=== PATIENT | male | born 1975 | race Caucasian/White ===

== ENCOUNTER 2016-06-09 12:32 | Emergency (ER) | payer SELFPAY ==
[~2016-06-09] VITALS: Ht 162.6 cm; Wt 95.0 kg
[2016-06-09 13:00] VITALS: Ht 162.6 cm; Wt 95.0 kg
[2016-06-09] MEDS ORDERED: morphine 4 MG/ML VIAL IV STA (14:29)
[2016-06-09] MEDS ORDERED: ONDANSETRON 4 MG INJ IV STA (14:29)
[2016-06-09] MEDS ORDERED: SOD CHLORIDE 0.9% 1,000 ML IV STA (14:29)
[2016-06-09 15:06] LABS: ADD SCAN DIFF NO
[2016-06-09 15:12] LABS: BASOPHILS % 0.6 % (0.0-2.0); EOSINOPHILS # 0.3 10^3/ul (0.0-0.5); EOSINOPHILS % 4.7 % (0.0-7.0); HEMATOCRIT 46.7 % (42.0-52.0); HEMOGLOBIN 15.4 g/dl (14.0-18.0); LYMPHOCYTES # 2.5 10^3/ul (0.8-2.9); LYMPHOCYTES % 36.3 % (15.0-51.0); MEAN CORPUSCULAR HEMOGLOBIN 28.6 pg (29.0-33.0); MEAN CORPUSCULAR VOLUME 86.8 fl (82.0-101.0); MEAN PLATELET VOLUME 10.6 fl (7.4-10.4); MONOCYTE # 0.7 10^3/ul (0.3-0.9); MONOCYTES % 9.4 % (0.0-11.0); NEUTROPHIL # 3.4 10^3/ul (1.6-7.5); NEUTROPHILS % 48.9 % (39.0-77.0); PLATELET COUNT 231 10^3/UL (140-415); RED BLOOD COUNT 5.38 10^6/ul (4.70-6.10); RED CELL DISTRIBUTION WIDTH 12.9 % (11.5-14.5)
[2016-06-09 15:15] LABS: ADD UMIC NO; URINE BILIRUBIN (Dip) NEGATIVE (NEGATIVE); URINE BLOOD (Dip) NEGATIVE (NEGATIVE); URINE COLOR LT. YELLOW (YELLOW); URINE GLUCOSE (Dip) NEGATIVE (NEGATIVE); URINE KETONES (Dip) NEGATIVE (NEGATIVE); URINE LEUKOCYTE ESTERASE (Dip) NEGATIVE (NEGATIVE); URINE NITRITE (Dip) NEGATIVE (NEGATIVE); URINE TOTAL PROTEIN (Dip) NEGATIVE (NEGATIVE); URINE UROBILINOGEN (Dip) 0.2 E.U./dL (0.1-1.0)
[2016-06-09 15:29] LABS: ALBUMIN 4.2 g/dl (3.3-4.9); POTASSIUM 4.5 mmol/L (3.5-5.1)
[2016-06-09 15:31] LABS: CREATININE 0.79 mg/dl (0.61-1.24)
[2016-06-09 15:32] LABS: ALBUMIN/GLOBULIN RATIO 1.2; BILIRUBIN,INDIRECT 0.3 mg/dl (0-1.1); BILIRUBIN,TOTAL 0.3 mg/dl (0.2-1.3); CALCIUM 9.9 mg/dl (8.4-10.2); TOTAL PROTEIN 7.7 g/dl (6.1-8.1)
--- NOTE | 2016-06-09 15:34 | RADRPT ---
PROCEDURE: CT Abdomen and Pelvis without contrast. CLINICAL INDICATION: Abdominal pain TECHNIQUE: CT scan of the abdomen and pelvis without contrast was performed on a multi-slice CT [facility] without intravenous contrast. Coronal and sagittal reformatted images were obtained from the axial source images. Images were reviewed on a high-resolution PACS workstation. One or more of the following does reduction techniques were used: Automated exposure control; adjustment of the mA an d/or kV according to patient size; use of the aorta of reconstruction technique. The total exam CTD I equals 22.52 mGy and the total exam DLP equals 1304 mGy-cm. COMPARISON: None available. FINDINGS: The lung bases are clear. Heart size is normal, and there is no evidence of pericardial thickening or effusion. There is mild decreased attenuation of the hepatic parenchyma consistent with fatty infiltration. T he liver, spleen, and pancreas are otherwise normal given the limitations of a noncontrast CT examin [facility]. The gallbladder is normal. The adrenal glands are normal. The kidneys without renal calculus or hydronephrosis. The aorta is of normal caliber. There is no retroperitoneal lymph node enlargment. There is no evidence of large or small bowel obstruction. A normal appendix is identified. No vadim e fluid or fluid collections are identified. No inflammatory changes are seen. There is a tiny benjamin umbilical hernia containing only fat. No enlarged pelvic sidewall lymph nodes are seen. The bladder is within normal limits. No free fl uid is identified. The inguinal regions are unremarkable. The bones are intact. IMPRESSION: 1. No CT evidence of mass, lymphadenopathy, or inflammatory change in the abdomen or pelvis. 2. Tiny periumbilical hernia containing only fat. RPTAT: KK .Keven Smith MD, MD Date Time Electronically viewed and signed by .Keven Smith MD, MD on 06/09/2016 15:33 .B/
--- NOTE | 2016-06-09 15:39 | RADRPT ---
PROCEDURE: Scrotal ultrasound CLINICAL INDICATION: Scrotal pain TECHNIQUE: Scrotal ultrasound was performed in multiple obliquities. Spencer scale and color imaging was performed. Images were reviewed on high resolution PACS monitors. COMPARISON: None available FINDINGS: The testes are normal in size and echogenicity. There is normal flow to the bilateral testes. No t esticular mass or cyst is identified. There are small bilateral hydroceles. There is a 3 mm righ t epididymal cyst and a 2 mm left epididymal cyst. The epididymides are otherwise normal.. There a re mild bilateral varicoceles. IMPRESSION: 1. Mild bilateral varicoceles and small bilateral hydroceles. 2. Small bilateral epididymal cysts. 3. Otherwise unremarkable scrotal ultrasound. RPTAT: KK .Keven Smith MD, Date Time Electronically viewed and signed by .Keven Smith MD, MD on 06/09/2016 15:39 .B/
[2016-06-09] MEDS ORDERED: IBUP-1542 PO (15:51)
[2016-06-09] MEDS ORDERED: ONDA4TAB8 PO (15:51)
[2016-06-09] MEDS ORDERED: HYDR-906 PO (15:51)
--- NOTE | 2016-06-09 15:58 | ERD ---
ER Documentation Chief Complaint Date/Time DATE: 06/09/16 TIME: 15:54 Chief Complaint Abdominal pain with diarrhea and genital pain x 1 day HPI This is a 40-year-old male presents to the ER with right lower quadrant abdominal pain that radiates into his right testicle for the last 4 months. Patient states that pain occurs intermittently severe and throbbing in quality when it occurs. Patient admits to nausea and vomiting on Tuesday. He also had a fever on Tuesday. Patient has bouts of diarrhea as well. Diarrhea is nonbloody. The vomiting was nonbilious nonbloody. Patient does not have any discharge from his penis. He denies any urinary frequency or dysuria. She has not traveled anywhere. ROS 12 point review of systems was done, all negative except per HPI. Medications Home Meds Active Scripts Ondansetron Hcl* (Zofran*) 4 Mg Tablet, 4 MG PO Q6H for NAUSEA AND/OR VOMITING, #30 TAB Prov:MARCK MATIAS 06/09/16 Ibuprofen* (Motrin*) 600 Mg Tab, 600 MG PO Q6, #30 TAB Prov:MARCK MATIAS 06/09/16 Hydrocodone/Acetaminophen ([place] 5-325 Tablet) 1 Each Tablet, 1 TAB PO Q6H Y for PAIN, #20 TAB Prov:MARCK MATIAS 06/09/16 PMhx/Soc Medical and Surgical Hx: pt denies Medical Hx, pt denies Surgical Hx History of Surgery: No Hx Alcohol Use: Yes Hx Substance Use: No Hx Tobacco Use: No Physical Exam Vitals Vital Signs Date Time Temp Pulse Resp B/P Pulse Ox O2 Delivery O2 Flow Rate FiO2 06/09/16 13:00 97.2 80 18 143/95 100 Physical Exam GENERAL: The patient is well developed and appropriate for usual state of health , in no apparent distress. HEENT: Atraumatic. CHEST: Clear to auscultation bilaterally. There are no rales, wheezes or rhonchi. HEART: Regular rate and rhythm. No murmurs, clicks, rubs or gallops. ABDOMEN: Soft, nontender and nondistended. Good bowel sounds. No rebound or guarding. No gross peritonitis. No gross organomegaly or masses. No Davalos sign or McBurney point tenderness. BACK: No midline or flank tenderness. : ttp to the right testicle no testicular masses no redness or swelling. no penile discharge NEURO: Alert and oriented. SKIN: There is no apparent rash or petechia. The skin is warm and dry. Result Diagram: 06/09/16 1455 06/09/16 1455 Results 24 hrs Laboratory Tests Test 06/09/16 14:55 White Blood Count 7.010^3/ul Red Blood Count 5.3810^6/ul Hemoglobin 15.4g/dl Hematocrit 46.7% Mean Corpuscular Volume 86.8fl Mean Corpuscular Hemoglobin 28.6pg Mean Corpuscular Hemoglobin Concent 33.0g/dl Red Cell Distribution Width 12.9% Platelet Count 14183^3/UL Mean Platelet Volume 10.6fl Neutrophils % 48.9% Lymphocytes % 36.3% Monocytes % 9.4% Eosinophils % 4.7% Basophils % 0.6% Nucleated Red Blood Cells % 0.0/100WBC Neutrophils # 3.410^3/ul Lymphocytes # 2.510^3/ul Monocytes # 0.710^3/ul Eosinophils # 0.310^3/ul Basophils # 0.010^3/ul Nucleated Red Blood Cells # 0.010^3/ul Urine Color LT. YELLOW Urine Clarity CLEAR Urine pH 5.5 Urine Specific [place] >=1.030 Urine Ketones NEGATIVE Urine Nitrite NEGATIVE Urine Bilirubin NEGATIVE Urine Urobilinogen 0.2 E.U./dL Urine Leukocyte Esterase NEGATIVE Urine Hemoglobin NEGATIVE Urine Glucose NEGATIVE% Urine Total Protein NEGATIVE Sodium Level 142mmol/L Potassium Level 4.5mmol/L Chloride Level 104mmol/L Carbon Dioxide Level 29mmol/L Anion Gap 14 Blood Urea Nitrogen 16mg/dl Creatinine 0.79mg/dl Glucose Level 96mg/dl Calcium Level 9.9mg/dl Total Bilirubin 0.3mg/dl Direct Bilirubin 0.00mg/dl Indirect Bilirubin 0.3mg/dl Aspartate Amino Transf (AST/SGOT) 57IU/L Alanine Aminotransferase (ALT/SGPT) 95IU/L Alkaline Phosphatase 76IU/L Total Protein 7.7g/dl Albumin 4.2g/dl Globulin 3.50g/dl Albumin/Globulin Ratio 1.20 Lipase 88U/L Current Medications Medications (Trade) Dose Ordered Sig/Nelida Route PRN Reason Start Time Stop Time Status Last Admin Dose Admin Sodium Chloride (NS) 1,000 ml @ 1,000 mls/hr Q1H STAT IV 06/09/16 14:29 06/09/16 15:28 DC 06/09/16 14:38 Morphine Sulfate (morphine) 4 mg ONCE STAT IV 06/09/16 14:29 06/09/16 14:31 DC 06/09/16 14:38 Ondansetron HCl (Zofran Inj) 4 mg ONCE STAT IV 06/09/16 14:29 06/09/16 14:31 DC 06/09/16 14:38 Procedures/MDM Differential diagnosis includes but is not limited to appendicitis, hernia, testicular torsion, UTI, constipation, epididymitis. This is a 40-year-old male presents to the ER with abdominal pain testicular pain. At this time there is no evidence of acute abdomen. His abdominal exam is completely benign. Patient does have bilateral hydroceles and epididymal cysts. There is no evidence of torsion. It is afebrile and well-appearing. He will be sent home with [place] and ibuprofen. Patient needs to f/u with PCP within 1-2 days or return to ER sooner if symptoms worsen. Plan was discussed with patient, he understands and agrees with plan. Departure Diagnosis: Primary Impression: Testicular pain Additional Impression: Abdominal pain Condition: Stable Patient Instructions: Abdominal Pain Additional Instructions: Call your primary care doctor TOMORROW for an appointment during the next 1-2 days.See the doctor sooner or return here if your condition worsens before your appointment time. MARCK MATIAS Jun 09, 2016 15:58
[2016-06-09 16:10] VITALS: BP 132/78; PULSE 79; RESP 18; TEMP 98.1
[2016-06-09] MEDS ORDERED: LOPE2CAP PO (16:11)
== END 2016-06-09 16:15 | disposition home or self-care (01) ==
LOC: FTE 12:32
DX: N50.811 Right testicular pain (principal); R11.2 Nausea with vomiting, unspecified
CPT/HCPCS: 74176; 76870; 80053; 81003; 83690; 85025; J2270; J2405; J7030; 36415; 96361; 96374; 96375